=== PATIENT | female | born 1975 | race Hispanic/Latino ===

== ENCOUNTER 2021-05-05 12:38 | Emergency (ER) | payer BC ==
[~2021-05-05] VITALS: Ht 149.9 cm; Wt 93.0 kg
== END 2021-05-05 15:00 | disposition home or self-care (01) ==
LOC: FSED 12:51
DX: R06.02 Shortness of breath (principal); D50.9 Iron deficiency anemia, unspecified; N92.0 Excessive and frequent menstruation with regular cycle; R53.83 Other fatigue
CPT/HCPCS: 71046; 80053; 81003; 81025; 82553; 83880; 84484; 85025; 85379; 93005; 99284